=== PATIENT | female | born 1975 | race Caucasian/White ===

== ENCOUNTER 2022-12-11 07:40 | Observation (INO) | payer MEDICARE, BC ==
[2022-12-11] MEDS ORDERED: Morphine 4 MG/ML Syringe IVPUSH ONE (07:59)
[2022-12-11] MEDS ORDERED: Ondansetron 4 MG/2 ML SDV IVPUSH ONE (07:59)
[2022-12-11] MEDS ORDERED: Sodium Chloride 0.9% 1,000 ML IV ONE (07:59)
[2022-12-11] MEDS ORDERED: HYDROmorphone 1 MG/ML Syringe IVPUSH ONE (08:23)
[2022-12-11 08:35] LABS: BASOPHILS PERCENT AUTO 0.1 % (0.0-1.5); EOSINOPHILS ABSOLUTE AUTO 0.1 K/uL (0.0-0.7); EOSINOPHILS PERCENT AUTO 0.3 % (0.0-7.0); HEMATOCRIT 41.6 % (36.0-46.0); HEMOGLOBIN 13.6 g/dL (12.0-16.0); LYMPHOCYTES ABSOLUTE AUTO 1.3 K/uL (0.6-2.4); LYMPHOCYTES PERCENT AUTO 7.9 % (16.0-40.0); MEAN CORPUSCULAR HEMOGLOBIN 27.8 pg (27.0-32.0); MEAN CORPUSCULAR HGB CONC 32.7 g/dL (31.0-37.0); MEAN CORPUSCULAR VOLUME 84.9 fL (80.0-98.0); MONOCYTES ABSOLUTE AUTO 0.7 K/uL (0.0-0.8); MONOCYTES PERCENT AUTO 4.2 % (0.0-15.0); NEUTROPHILS ABSOLUTE AUTO 14.5 K/uL (1.4-5.7); NEUTROPHILS PERCENT AUTO 87.5 % (48.0-80.0); NRBC ABSOLUTE 0 K/uL; PLATELET COUNT,PLT 302 K/uL (150-400); WHITE BLOOD CELL COUNT,WBC 16.53 K/uL (4.0-11.0)
[2022-12-11 08:38] LABS: A/G RATIO 0.9 (0.9-1.6); ALBUMIN 3.6 g/dL (3.4-5.0); BILIRUBIN TOTAL 0.5 mg/dL (0.2-1.0); CALCIUM 8.8 mg/dL (8.5-10.1); CARBON DIOXIDE,CO2 27.9 mmol/L (21.0-32.0); CREATININE 1.2 mg/dL (0.6-1.0); EST CRCL DRUG DOSING (CG) 50.05 mL/min; MAGNESIUM 1.7 mg/dL (1.8-2.4); POTASSIUM,K 3.8 mmol/L (3.5-5.1); PROTEIN TOTAL,TP 7.6 g/dL (6.4-8.2)
[2022-12-11] MEDS ORDERED: Piperacillin/Tazobactam 4.5 GM in Sodium Chloride 0.9% 100 ML IV ONE (09:19)
[2022-12-11] MEDS ORDERED: Scopolamine 1.5 MG Transdermal Patch TOP ONE (09:19)
[2022-12-11] MEDS ORDERED: Dexmedetomidine 200 MCG/2 ML SDV ONE (10:06)
[2022-12-11] MEDS ORDERED: fentaNYL 100 MCG/2 ML SDV ONE (10:06)
[2022-12-11] MEDS ORDERED: Propofol 200 MG/20 ML SDV ONE (10:06)
[2022-12-11] MEDS ORDERED: Rocuronium Bromide 50 MG/5 ML Syringe ONE (10:50)
[2022-12-11] MEDS ORDERED: Ropivacaine 0.5% 5 MG/ML 30 ML SDV ONE (10:52)
[2022-12-11] MEDS ORDERED: Bupivacaine 0.5% 30 ML SDV ONE (10:59)
[2022-12-11] MEDS ORDERED: Magnesium Sulfate (4.06 MEQ/ML) 5 GM/10 ML SDV ONE (11:53)
[2022-12-11] MEDS ORDERED: Dexamethasone 4 MG/ML 5 ML MDV ONE (12:40)
[2022-12-11] MEDS ORDERED: Sugammadex Sodium 200 MG/2 ML VIAL ONE (12:41)
[2022-12-11] MEDS ORDERED: Ketorolac 30 MG/ML SDV ONE (12:41)
[2022-12-11] MEDS ORDERED: Ondansetron 4 MG/2 ML SDV ONE (12:41)
[2022-12-11] MEDS ORDERED: ClonazePAM 0.5 MG Tab PO PRN (14:00)
[2022-12-11] MEDS ORDERED: diphenhydrAMINE 25 MG Cap PO PRN (14:30)
[2022-12-11] MEDS ORDERED: Ondansetron 4 MG/2 ML SDV IVPUSH PRN (14:30)
[2022-12-11] MEDS: Acetaminophen/HYDROcodone 325-5 MG Tab PO PRN (14:37)
[2022-12-11] MEDS: Escitalopram 10 MG Tab PO SCH (14:38)
[2022-12-11] MEDS: HYDROmorphone 1 MG/ML Syringe IVPUSH PRN ×2 (17:17→20:42)
[2022-12-11] MEDS: Lactated Ringers 1,000 ML IV SCH ×2 (18:15→22:50)
[2022-12-11] MEDS: Piperacillin/Tazobactam 3.375 GM in Sodium Chloride 0.9% 100 ML IV SCH (18:38)
[2022-12-11] MEDS ORDERED: cloNIDine 0.1 MG Tab PO SCH (21:00)
[2022-12-11] MEDS ORDERED: Gabapentin 300 MG Cap PO SCH (21:00)
[2022-12-11] MEDS ORDERED: Baclofen 10 MG Tab PO SCH ×2 (21:00)
[2022-12-11] MEDS ORDERED: Pantoprazole 40 MG Tab.CR PO SCH (21:00)
[2022-12-11] MEDS ORDERED: ZOLPIDEM 10 MG PO PRN (21:00)
[2022-12-12] MEDS: HYDROmorphone 1 MG/ML Syringe IVPUSH PRN ×3 (00:23→10:22)
[2022-12-12] MEDS: Piperacillin/Tazobactam 3.375 GM in Sodium Chloride 0.9% 100 ML IV SCH ×2 (00:28→05:50)
[2022-12-12 06:18] LABS: HEMATOCRIT 33.5 % (36.0-46.0); HEMOGLOBIN 10.3 g/dL (12.0-16.0); MEAN CORPUSCULAR HGB CONC 30.7 g/dL (31.0-37.0); MEAN CORPUSCULAR VOLUME 87.9 fL (80.0-98.0); MEAN PLATELET VOLUME 9.4 fL (7.40-12.00); RED BLOOD CELL COUNT 3.81 M/uL (4.30-5.90); WHITE BLOOD CELL COUNT,WBC 14.57 K/uL (4.0-11.0)
[2022-12-12 06:23] LABS: A/G RATIO 0.8 (0.9-1.6); ALBUMIN 2.9 g/dL (3.4-5.0); BILIRUBIN TOTAL 0.3 mg/dL (0.2-1.0); CALCIUM 7.9 mg/dL (8.5-10.1); CARBON DIOXIDE,CO2 27.7 mmol/L (21.0-32.0); CREATININE 1.1 mg/dL (0.6-1.0); EST CRCL DRUG DOSING (CG) 54.6 mL/min; POTASSIUM,K 4.8 mmol/L (3.5-5.1); PROTEIN TOTAL,TP 6.4 g/dL (6.4-8.2)
[2022-12-12] MEDS: Acetaminophen/HYDROcodone 325-5 MG Tab PO PRN (07:22)
[2022-12-12 07:56] LABS: HEMOGLOBIN A1C 6.4 %
[2022-12-12] MEDS: Escitalopram 10 MG Tab PO SCH (08:43)
== END 2022-12-12 13:00 | disposition home or self-care (01) ==
LOC: MW.ED 07:40 → MW.SDS 09:24 → MW.MS 10:01 → MW.SDS 13:49
PROVIDERS: ADMIT Surgery; ATTEND Surgery
DX: K80.10 Calculus of gallbladder with chronic cholecystitis without obstruction (principal); K31.A0 Gastric intestinal metaplasia, unspecified; K82.8 Other specified diseases of gallbladder; Z88.1 Allergy status to other antibiotic agents; Z79.899 Other long term (current) drug therapy; Z90.49 Acquired absence of other specified parts of digestive tract
CPT/HCPCS: 36415; 47562; 64488; 76705; 80053; 83036; 83690; 83735; 84703; 85025; 85027; 88304; 96361; 96365; 96375; 96376; 99285; A9270; G0378; J0131; J1100; J1170; J1885; J2270; J2405; J2543; J2704; J2795; J3010; J3475; J3490; J7030; J7120; 00790; 99284